=== PATIENT | female | born 1955 | race Caucasian/White ===

== ENCOUNTER 2020-03-17 15:14 | Emergency (ER) | payer SELFPAY ==
--- NOTE | 2020-03-17 16:53 | ER Document Report ---
ED Medical Screen (RME) - General Chief Complaint: Leg Pain Stated Complaint: LEFT LEG PAIN Time Seen by Provider: 03/17/20 16:48 Notes: HPI: 64-year-old female presenting to the emergency department complaining of left posterior leg pain extending from the calf up through the thigh. Denies trauma. Denies swelling of the leg. Pain began today and she was worried about a blood clot. No chest pain or shortness of breath PHYSICAL EXAMINATION: No visible significant edema to the bilateral lower extremities. There is mild tenderness through the proximal left mid calf region extending to the hamstring region I have greeted and performed a rapid initial assessment of this patient. A comprehensive ED assessment and evaluation of the patient, analysis of test results and completion of medical decision making process will be conducted by an additional ED providers. TRAVEL OUTSIDE OF THE [place] IN LAST 30 DAYS: No - Related Data Allergies/Adverse Reactions: No Known Allergies Allergy (Verified 04/11/16 12:02) Home Medications: Robaxin, Tramadol, Atorvastatin, Pantaprazole Past Medical History - Past Medical History Cardiac Medical History: Reports: Hx Heart Attack, Hx Hypercholesterolemia, Hx Hypertension Physical Exam - Vital signs Vitals: Temp Pulse Resp BP Pulse Ox 98.0 F 66 18 152/88 H 98 03/17/20 15:34 03/17/20 15:34 03/17/20 15:34 03/17/20 15:34 03/17/20 15:34 Course - Vital Signs Vital signs: Temp Pulse Resp BP Pulse Ox 98.0 F 66 18 152/88 H 98 03/17/20 16:48 03/17/20 15:34 03/17/20 15:34 03/17/20 15:34 03/17/20 15:34
--- NOTE | 2020-03-17 18:18 | RADIOLOGY REPORT (SQ) ---
EXAM DESCRIPTION: VENOUS UNILATERAL LOWER IMAGES COMPLETED DATE/TIME: 03/17/2020 6:08 pm REASON FOR STUDY: r/o DVT LLE COMPARISON: None. TECHNIQUE: Dynamic and static mejia scale and color images acquired of the left leg venous system. Se lected spectral images acquired with additional compression and augmentation maneuvers. The contralat eral common femoral vein and saphenofemoral junction were also imaged. Images stored on PACS. LIMITATIONS: None. FINDINGS: COMMON FEMORAL: Normal phasicity, compression and augmentation. No visualized echogenic ma terial on mejia scale. No defects on color images. FEMORAL: Normal compression and augmentation. No visualized echogenic material on mejia scale. No defe cts on color images. POPLITEAL: Normal compression, augmentation. No visualized echogenic material on mejia scale. No defec ts on color images. CALF VESSELS: Normal compression, augmentation. No visualized echogenic material on mejia scale. No de fects on color images. Limited evaluation of the peroneal veins. GSV and SSV: Normal compression, augmentation. No visualized echogenic material on mejia scale. No def ects on color images. ANY DEEP VENOUS INSUFFICIENCY: Not evaluated. ANY EVIDENCE OF POPLITEAL CYST: No. OTHER: No other significant finding. CONTRALATERAL COMMON FEMORAL VEIN AND SAPHENOFEMORAL JUNCTION: Normal phasicity, compression and augmentation. No visualized echogenic material on mejia scale. No de fects on color images. IMPRESSION: NO EVIDENCE DVT OR SVT IN THE LEFT LEG. TECHNICAL DOCUMENTATION: JOB ID: [id number] 2010 [employer]- All Rights Reserved Reading location - IP/workstation name: [email or web address]
--- NOTE | 2020-03-17 19:05 | ER Document Report ---
HPI - HPI Time Seen by Provider: 03/17/20 16:48 Pain Level: 3 Notes: CHIEF COMPLAINT: Left leg pain today HPI: See RME note for history ROS: See HPI - all other systems were reviewed and are otherwise negative Constitutional: no fever Cardiovascular: no chest pain Resp: no SOB, no cough Integumentary: no rash Allergy: no hives Musculoskeletal: + extremity pain or swelling Neurological: no numbness/tingling, no weakness MEDICATIONS: I agree with the patient medications as charted by the RN. ALLERGIES: I agree with the allergies as charted by the RN. PAST MEDICAL HISTORY/PAST SURGICAL HISTORY: Reviewed and agree as charted by RN. SOCIAL HISTORY: Reviewed and agree as charted by RN. FAMILY HISTORY: No significant familial comorbid conditions directly related to patient complaint EXAM: Reviewed vital signs as charted by RN. CONSTITUTIONAL: Alert and oriented and responds appropriately to questions. Well-appearing; well-nourished HEAD: Normocephalic; atraumatic EYES: Conjunctivae clear, sclerae non-icteric ENT: normal nose; no rhinorrhea; moist mucous membranes NECK: Supple without meningismus CARD: symmetric distal pulses RESP: Normal chest excursion without splinting or tachypnea ABD/GI: non-distended BACK: The back appears normal and is non-tender to palpation, there is no CVA tenderness EXT: Normal ROM in all joints; no cyanosis, no effusions, no visible soft tissue swelling to the left lower extremity. Mild tenderness to the posterior calf on palpation negative Homans sign. Dorsalis pedis and posterior tibial pulses present in the left lower extremity. No visible rash SKIN: Normal color for age and race; warm; dry; good turgor; no acute lesions noted NEURO: Moves all extremities equally; Motor and sensory function intact PSYCH: The patient's mood and manner are appropriate. Grooming and personal hygiene are appropriate. MDM: 64-year-old female with pain to the left posterior hamstring and calf region today no definitive trauma. Doppler study negative for DVT. No indication for imaging of x-ray at this time. Will refer to PCP anti- inflammatories - REPRODUCTIVE Reproductive: DENIES: : Past Medical History - Social History Smoking Status: Unknown if Ever Smoked Family History: DM Patient has homicidal ideation: No - Past Medical History Cardiac Medical History: Reports: Hx Heart Attack, Hx Hypercholesterolemia, Hx Hypertension Vertical Provider Document - INFECTION CONTROL TRAVEL OUTSIDE OF THE [place] IN LAST 30 DAYS: No Course - Vital Signs Vital signs: Temp Pulse Resp BP Pulse Ox 98.0 F 66 18 152/88 H 98 03/17/20 16:48 03/17/20 15:34 03/17/20 15:34 03/17/20 15:34 03/17/20 15:34 Discharge - Discharge Clinical Impression: Pain in left leg Condition: Stable Disposition: HOME, SELF-CARE Additional Instructions: Your Doppler study today did not show evidence of a DVT or blood clot in the left leg. There is not a definitive reason for the leg pain at this time, follow-up with your primary care provider or referral provider for reevaluation of the leg, take the anti-inflammatories for pain as prescribed Prescriptions: Diclofenac Sodium [Voltaren 50 Mg Tablet.] 50 mg PO BID #20 tablet. Referrals: YVONNE NJ MD [ACTIVE STAFF] - Follow up as needed
[2020-03-17 19:54] VITALS: BP 148/82
== END 2020-03-17 19:45 | disposition home or self-care (01) ==
LOC: ER 15:14
DX: M79.18 Myalgia, other site (principal); M79.662 Pain in left lower leg; E78.00 Pure hypercholesterolemia, unspecified; I10 Essential (primary) hypertension; Z79.899 Other long term (current) drug therapy
CPT/HCPCS: 93971; 99284

== ENCOUNTER → 2020-04-25 | Outpatient (CLI) | payer OTHER ==
--- NOTE | 2020-04-25 12:09 | RADIOLOGY REPORT (SQ) ---
EXAM DESCRIPTION: MRI LT LOWER JOINT WITHOUT IMAGES COMPLETED DATE/TIME: 04/25/2020 9:54 am REASON FOR STUDY: (M25.562)PAIN IN LEFT KNEE M25.562 PAIN IN LEFT KNEE COMPARISON: None. TECHNIQUE: Leftknee images acquired and stored on PACS. Multiplanar images include fat sensitive se quences as T1, water sensitive sequences as FST2 or STIR, cartilage sensitive sequences as FSPD, and gradient echo sequences. LIMITATIONS: None. FINDINGS: JOINT AND BURSAE: Joint effusion. No popliteal cyst. BONE CORTEX AND MARROW: No alteration of signal to suggest marrow replacement. No worrisome bone lesi ons. No occult fracture. ACL: Intact. No degeneration or ganglion cyst. PCL: Intact. MCL: Intact. No periligamentous edema or fluid. LCL: Intact. No periligamentous edema or fluid. MEDIAL MENISCUS: Flap tear posterior horn. LATERAL MENISCUS: No tears. No abnormal signal. MEDIAL COMPARTMENT: Reactive marrow edema. Subchondral impaction. Cartilaginous loss. LATERAL COMPARTMENT: Cartilage preserved. No bone bruises or reactive marrow edema. No osteophytes. PATELLA: No focal chondromalacia. Patellofemoral osteophytes. EXTENSOR MECHANISM: Intact. Quadriceps and patella tendons normal. SOFT TISSUES: Adjacent muscles and subcutaneous tissues normal. Normal flow void in popliteal artery and vein. OTHER: No other significant finding. IMPRESSION: Flap tear of the medial meniscus. Degenerative changes in the medial compartment. Mild patellofemoral degenerative changes. Joint effusion. TECHNICAL DOCUMENTATION: JOB ID: [id number] 2010 [employer]- All Rights Reserved Reading location - IP/workstation name: [email or web address]
== END ==
LOC: RAD 08:59
PROVIDERS: ATTEND Physician Assistant
DX: M25.562 Pain in left knee (principal)